=== PATIENT | female | born 1985 | race Caucasian/White ===

== ENCOUNTER 2020-02-17 01:22 | Emergency (ER) | payer OTHER, SELFPAY ==
[2020-02-17 01:24] VITALS: BP 121/84; PULSE 100; RESP 18; TEMP 36.5; O2SAT 100; BMI 26.6
[2020-02-17 01:35] LABS: Bacteria 0 SEEN /hpf (None Seen); Mucous, Urine 0 SEEN /hpf (<or=2+); Red Blood Cells-Urine 0 SEEN /hpf (0-5); White Blood Cells 0 SEEN /hpf (0-5)
[2020-02-17 01:36] LABS: Color, Urine Straw (Yellow); Glucose, Dipstick Normal (Normal); Ketone-Dipstick Negative (Negative); Leukocyte Esterase-Dipstick Negative /ul (Negative); Nitrite-Dipstick Negative (Negative); Occult Blood-Urine 10 /ul (Negative); Protein-Dipstick Negative (Negative); Urine Bilirubin Dipstick Negative (Negative); Urine Clarity Clear (Clear); Urine Urobilinogen Normal (Normal)
[2020-02-17 01:44] VITALS: BP 121/84; PULSE 100; RESP 18; TEMP 36.5; O2SAT 100
[2020-02-17 01:51] LABS: Squamous Epithelial Cells - UA 5-10 SEEN /hpf (5-10)
--- NOTE | 2020-02-17 02:10 | US_ITS ---
STUDY: RENAL ULTRASOUND - COMPLETE REASON FOR EXAM: Female, 34 years old. LT SIDE PAIN 27 WEEKS HX OF STONES TECHNIQUE: Ultrasound evaluation of the kidneys was performed with real-time and static flores-scale imaging. COMPARISON: None. FINDINGS: RIGHT KIDNEY: Normal location of the right kidney, which is normal in size. The right kidney measures 12.2 x 4.6 x 4.7 cm. There is a normal cortex of the right kidney. The renal cortex measures 1.5 cm. There is no right renal mass or cyst. There are no right renal calculi. There is no right hydronephrosis. DISTAL RIGHT URETER: There is non-visualization of the distal right ureter. There is no demonstrated right ureterovesical junction calculus. There is a visualized right ureteral jet. LEFT KIDNEY: Normal location of the left kidney, which is normal in size. The left kidney measures 11.2 x 4.4 x 4.5 cm. There is a normal cortex of the left kidney. The renal cortex measures 1.5 cm. There is no left renal mass or cyst. There is possible stone in the left kidney measures 4 mm. There is mild left hydronephrosis. DISTAL LEFT URETER: There is non-visualization of the distal left ureter. There is no demonstrated left ureterovesical junction calculus. There is a visualized left ureteral jet. AORTA: There is no demonstrated aneurysm.. I.V.C.: The IVC is patent. BLADDER: The distended urinary bladder has a volume of ml. The empty urinary bladder has a volume of ml. There is a normal wall thickness of the distended urinary bladder. There is no demonstrated mass within the urinary bladder. There are no demonstrated bladder calculi. US/Kidney and Bladder IMPRESSION: There is possible stone in the left kidney measures 4 mm. There is mild left hydronephrosis. Electronically Signed: Yumi Gibson, at 3:48 EDT Tel , Service support ,
[2020-02-17] MEDS: Acetaminophen 325 MG Tablet 650 MG PO (02:17)
[2020-02-17 03:22] VITALS: BP 116/79; PULSE 86; RESP 18; O2SAT 95
--- NOTE | 2020-02-17 04:20 | ED.DCSUM_ITS ---
History of Present Illness Chief Complaint: Flank Pain Informant: Patient Onset: Yesterday Context: Gradual Onset Timing: Intermittent Current Severity: Mild Maximum Severity: Moderate Narrative: Patient is G2, P1 currently 27 weeks presenting with left flank pain. Patient states that intermittent episodes since yesterday. It became worse tonight. She describes it as sharp. She also notes that she is been having urinary frequency and urgency. She is unsure she has a urinary tract infection. Patient is actually from out of town but is been staying with her mother for the past month. She has an appointment to go see Dr. Balbir Hoyt tomorrow. Patient did not take anything for pain prior to arrival. Patient denies any associated fever or chills. She denies any dysuria or hematuria. She still feeling the baby move. She denies any leakage of fluid or vaginal bleeding. Past Medical History - Allergies and Home Meds Allergies/Adverse Reactions: Allergies No Known Allergies Allergy (Verified 02/17/20 01:27) Primary Care Physician: Fito Taylor MD [STAFF PHYSICIAN] - Cheyanne Orellana MD [STAFF PHYSICIAN] - Past Medical History: - - Kidney stones Surgical History: noncontributory Lives: With Family Smoking Status: Never smoker Review of Systems General: Denies: Chills, Fever, Sweats Eyes: Denies: Visual changes - bilaterally, Diplopia ENT: Denies: Rhinorrhea, Sore throat Cardiovascular: Denies: Chest pain, Palpitations Respiratory: Denies: Dyspnea, Cough, Dyspnea on exertion Gastrointestinal: Reports: Abdominal pain - Left flank. Denies: Nausea, Vomiting, Diarrhea, Melena, Hematochezia Genitourinary: Reports: Frequency. Denies: Dysuria, Hematuria Musculoskeletal: Denies: Back pain, Extremity Pain Skin: Denies: Rash, Wounds Neurological: Denies: Headache, Weakness, Numbness Physical Exam Vital Signs/Narrative: Vital Signs Temp Pulse Resp BP Pulse Ox 02/17/20 03:22 86 18 116/79 95 02/17/20 01:44 97.7 F L 100 18 121/84 H 100 02/17/20 01:24 97.7 F L 100 18 121/84 H 100 Inital Vital Signs reviewed: Yes General: Well nourished, Well developed, No Acute Distress Head: Normocephalic, Atraumatic Eyes: Perrl, EOMI ENT: Moist mucous membranes, No rhinorrhea Neck: Supple, Nontender Cardiovascular: Regular rate, Regular rhythm, No murmurs Respiratory: No distress, CTA bilaterally, Chest nontender Abdomen: Soft, Nontender, Nondistended, Normal bowel sounds, - - Gravid abdomen with fundus palpable above the umbilicus. No reproducible flank pain on exam.. Negative for: Guarding, Rebound tenderness Back: Nontender, Normal Inspection. Negative for: CVA tenderness, Spinal tenderness Extremities: Nontender, No edema Skin: Normal color, No rash Neurological: Alert, Oriented x3, Cranial nerves II-XII grossly intact, Normal Strength, Normal Sensation Psychological: Normal affect, Normal Mood Diagnostic/Tx/Re-eval Clinical Impression(s) from Imaging Studies Renal Ultrasound 02/17/20 02:10 IMPRESSION: There is possible stone in the left kidney measures 4 mm. There is mild left hydronephrosis. Electronically Signed: Eason Arthur, at 3:48 EDT Tel , Service support , Laboratory Data 02/17/20 01:30 Urine Color Straw Urine Clarity Clear Urine pH 7.0 Ur Specific [place] 1.010 Urine Protein Negative Urine Glucose (UA) Normal Urine Ketones Negative Urine Occult Blood 10 H Urine Nitrite Negative Urine Bilirubin Negative Urine Urobilinogen Normal Ur Leukocyte Esterase Negative Urine RBC 0 SEEN Urine WBC 0 SEEN Ur Squamous Epith Cells 5-10 SEEN Urine Bacteria 0 SEEN Urine Mucus 0 SEEN - Medical Decision Making She is a 34-year-old female who is currently 27 weeks presenting with 2 days of intermittent pain in her right back. Patient has a history of kidney stones and states this feels similar to this. She also is had some increased urgency of urination is concerned she might have a UTI. She has an appointment to see her [facility] the day after tomorrow. Urinalysis does show some occult blood but is negative for red blood cells. No bacteria are seen and no other signs of infection. Given that she is her urine is sent out for culture. Renal ultrasound obtained and added to his to look for signs of hydronephrosis or possible kidney stone and attempt to avoid radiation given her . Patient does have some mild hydronephrosis of the left kidney with a possible 4 mm stone. This is consistent with patient's presentation. Patient be treated as if she does have a kidney stone. She is given a course of [place] and saw her phone Rosemary for symptom control. She is counseled that if the pain is not severe she can take Tylenol but not to take Tylenol on top of [place]. She will follow-up with her [facility]. She is given urology for outpatient follow-up as well if needed. As patient is continued to have had feel movements, heart tones are not obtained. Patient is counseled on signs and symptoms requiring return to the emergency room. Patient verbalizes agreement and understand this plan. Patient discharged home in stable and improved condition. ED Disposition - Plan for ED Patient: Disposition: Home or Assisted Living Diagnosis: Left ureteral stone Instructions: ED Renal Stone w Colic Prescriptions: Hydrocodone/Acetaminophen [[place] 5-325 Tablet] 1 ea PO Q6H PRN PRN #12 tab PRN Reason: Pain Score 6-10/10 Prescription Printed Ondansetron [Zofran Odt] 4 mg PO Q8H PRN PRN #10 tab PRN Reason: Nausea Prescription Printed Referrals: Cheyanne Orellana MD [STAFF PHYSICIAN] - Fito Taylor MD [STAFF PHYSICIAN] - Additional Instructions: Take Tylenol for mild pain. You may take the [place] (hydrocodone/Tylenol) for more severe pain. Please follow-up with Dr. Balbir Hoyt tomorrow. Urine culture is pending. Your symptoms continue to persist I have also given you the information for urology.
[2020-02-17 04:40] VITALS: BP 110/72; PULSE 82; RESP 16; O2SAT 100
== END 2020-02-17 04:40 | disposition home or self-care (01) ==
PROVIDERS: Emergency Provider Emergency Medicine
DX: O26.892 Other specified pregnancy related conditions, second trimester (principal); N13.2 Hydronephrosis with renal and ureteral calculous obstruction; Z3A.27 27 weeks gestation of pregnancy; Z87.442 Personal history of urinary calculi
CPT/HCPCS: 76770; 81001; 87086; 87088; 99283

== ENCOUNTER → 2020-02-18 | Outpatient (CLI) | payer OTHER, SELFPAY ==
[2020-02-18 13:09] VITALS: BMI 26.6
[2020-02-18 14:32] LABS: Absolute Lymphocyte Count 1.32 X10^3/uL (0.83-4.51); Absolute Neutrophil Count 7.5 X10^3/uL (2.0-7.7); Basophil# 0.03 X10^3/uL; Basophil% 0.3 % (0-1); Eosinophil# 0.09 X10^3/uL; Hematocrit 34.3 % (37-47); Hemoglobin 11.2 g/dL (12.0-15.0); Lymphocyte # 1.32 X10^3/ul (4.0); Lymphocyte % 13.9 % (19-41); Mean Corp Hgb Conc 32.7 g/dL (32-36); Mean Corpuscular Hgb 29.6 pg (27.0-32.0); Mean Corpuscular Volume 90.7 fL (81-99); Mean Platelet Vol. 11.6 fl (6.2-12.0); Monocyte# 0.48 X10^3/uL; Monocyte% 5.1 % (0-10); NRBC Flagged by Analyzer 0 % (0-5); Neutrophil # 7.48 X10^3/uL (2.7-7.7); Platelet Count 192 K/mm3 (150-450); RBC Distribution Width CV 13.5 % (11.6-14.6); RBC Distribution Width SD 44.5 fl (35.1-43.9); Red Blood Count 3.78 M/mm3 (4.2-5.4); White Blood Count 9.5 K/mm3 (4.4-11.0)
[2020-02-18 15:06] LABS: Glucose Challenge Gest 1H 50g 132 mg/dL (70-140)
== END | disposition home or self-care (01) ==
LOC: PAVLAB 13:38
PROVIDERS: Referring Provider Obstetrics & Gynecology; Visit Provider Obstetrics & Gynecology
DX: Z34.90 Encounter for supervision of normal pregnancy, unspecified, unspecified trimester (principal)
CPT/HCPCS: 36415; 82950; 85025